=== PATIENT | female | born 1990 | race Caucasian/White ===

== ENCOUNTER 2024-06-30 17:02 | Emergency (ER) | payer MEDICAID, SELFPAY ==
[2024-06-30 17:13] VITALS: BP 124/84; PULSE 78; RESP 16; TEMP 37.2; O2SAT 98; BMI 33.9
--- NOTE | 2024-06-30 17:19 | PD.EDRME ---
Rapid Medical Screening Exam RME Arrival date/time: 06/30/24 17:02 33-year-old female presents to the emergency department complaint of generalized body aches Chief Complaint: General Adult/Misc Complain Vital signs: Vital Signs Temperature 99.0 F 06/30/24 17:13 Pulse Rate 78 06/30/24 17:13 Respiratory Rate 16 06/30/24 17:13 Blood Pressure 124/84 06/30/24 17:13 Pulse Oximetry (%) 98 06/30/24 17:13 Oxygen Delivery Method Room Air 06/30/24 17:13
[2024-06-30 18:31] LABS: Basophils % (Auto) 1 % (0-2.5); Eosinophils # (Auto) 0.4 Thou/mm3 (0.0-0.5); Eosinophils % (Auto) 5 % (0-10); Hematocrit 33.7 % (36.0-46.0); Immature Granulocytes % (Auto) 0 % (0-0); Immature Granulocytes Auto 0.01 Thou/mm3 (0.00-0.00); Lymphocytes # (Auto) 2.7 Thou/mm3 (1.0-4.8); Lymphocytes % (Auto) 36 % (10-50); Mean Corpuscular HGB Conc 35.6 g/dl (31.0-37.0); Mean Corpuscular Hemoglobin 30.4 pg (25.0-35.0); Mean Corpuscular Volume 85 fL (80-100); Monocytes # (Auto) 0.4 Thou/mm3 (0.0-0.8); Monocytes % (Auto) 5 % (0-12); Neutrophils % (Auto) 53 % (37-80); Nucleated Red Blood Cell % 0 /100 WBC (0); Platelet Count 210 Thou/mm3 (140-440); RDW Standard Deviation 38.3 fL (36.4-46.3); Red Blood Count 3.95 Miln/mm3 (4.00-5.20); White Blood Count 7.6 Thou/mm3 (3.6-11.0)
--- NOTE | 2024-06-30 18:31 | PD.EDSKIN ---
ED Skin Abcess FB-RME/HPI General Chief complaint: General Adult/Misc Complain Stated complaint: PAIN ALL OVER BODY Source: patient Arrival date/time: 06/30/24 17:02 Mode of arrival: ambulatory Limitations: no limitations RME / HPI RME / HPI narrative: 06/30/24 17:02 33-year-old female presents to the emergency department complaint of generalized body aches DR. GONZALEZ?Ke[facility] MAIN ED EVALUATION: 33-year-old female with history of shingles presenting to the emergency department via private auto who is presenting for chief complaint of waking up with generalized body aches, fever 102F, and left-sided back red discoloration x this morning. Reports pain as feeling like she got hit by a train . Denies Hx of MRSA or practicing coining, but has had shingles to the right-back side in the past. Also admits to not being sexually active for 9 years. Patient takes Levothyroxine daily, but has also tried Motrin 3 times today for management of pain with no relief. No associated symptoms include cough and runny nose. Patient denies any other associated symptoms or medical complaints. - PMH:?Shingles, Hypothyroidism, ADHD, PTSD - PSH: Denies - Social history: Denies - Current medications: Reviewed PCP MD MIGUELITO woodruff complaint: discoloration and other (BA) Onset (ago): hour(s) (24) Location: back Context: none Associated symptoms: fever Treatments prior to arrival: NSAID Related Data Previous Rx's ?Medication ?Instructions ?Recorded albuterol sulfate 90 mcg/actuation 1 puff inhalation Q6H PRN 07/05/21 aerosol inhaler (Ventolin HFA) shortness of breath or wheezing #6.7 grams azithromycin 250 mg tablet See Rx Instructions PO .COMPLEX #6 01/17/22 (Zithromax) tabs benzonatate 100 mg capsule 100 mg PO BID PRN cough #10 caps 01/17/22 clindamycin HCl 300 mg capsule 300 mg PO Q6H 7 days #28 caps 06/30/24 Allergies Allergy/AdvReac Type Severity Reaction Status Date / Time cashew nut Allergy Verified 06/30/24 17:04 pine nut Allergy Verified 06/30/24 17:04 Review of Systems Review of Systems Systems Reviewed: All systems reviewed, normal except as documented Constitutional Constitutional: Reports fever(s) and Reports other (Generalized pain) ENT Ears, Nose, Mouth, and Throat: Denies nasal discharge Respiratory Respiratory: Denies cough Integumentary/Breasts Skin/Breast: Reports erythema Past Medical History Past Medical History REPRODUCTIVE: Positive Previous Pregnancies ENDOCRINE: Positive Hypothyroidism PSYCHO/SOCIAL: Positive Anxiety, Attention Deficit Hyperactivity Disorder and Post Traumatic Stress Disorder Surgical History SURGICAL: Positive Abdominal Surgery and Section Social History SMOKING STATUS: Current every day smoker ED Exam Narrative Physical exam: General: Non-toxic, well appearing, in no acute distress, and appears state age and well developed and well nourished. Vital signs: Normal. Head: Normocephalic and atraumatic. Eyes: Aproptotic, extraocular movements intact. Nose: Nares without evidence of rhinorrhea. Neck: Supple without menigismus without lympadenopathy. Heart: Regular rate and rhythm without murmur, gallops, or rubs. Lungs: Clear to auscultation without wheezing, rales, or rhonchi. Back: No costovertebral angle tenderness. Neurological: Alert and oriented to person, place, and time. Gait normal. Skin: 3 x 2 cm area of erythema, minimal tenderness of patient no fluctuance. Minimal warmth over the left back area. No crepitus or evidence of sub cutaneous gas. No lymphangitis. No calf tenderness. Vascular: Normal pulses. No cords. No calf tenderness. General Limitations: Present no limitations Course Quality Measures none Orders Category Date Time Status CBC Stat Lab 06/30/24 18:00 Completed Comprehensive Metabolic Panel Stat Lab 06/30/24 18:00 Completed Free T4 (Free Thyroxine) Stat Lab 06/30/24 18:00 Completed Lipase Stat Lab 06/30/24 18:00 Completed PT [Prothrombin Time with INR] Stat Lab 06/30/24 18:00 Completed PTT [Partial Thromboplastin Time] Stat Lab 06/30/24 18:00 Completed TSH [Thyroid Stimulating Hormone] Stat Lab 06/30/24 18:00 Completed Clindamycin [Cleocin] Med 06/30/24 18:35 Discontinued 300 mg PO X1 ONE Ketorolac Inj [Toradol Inj] Med 06/30/24 18:35 Discontinued 30 mg IM X1 ONE Vital Signs Vital signs: Vital Signs Temperature 99.0 F 06/30/24 17:13 Pulse Rate 78 06/30/24 17:13 Respiratory Rate 16 06/30/24 17:13 Blood Pressure 124/84 06/30/24 17:13 Pulse Oximetry (%) 98 06/30/24 17:13 Oxygen Delivery Method Room Air 06/30/24 17:13 Skin / Abscess / Foreign Body MDM Narrative MDM Narrative:: Scribe Attestation: 06/30/2024 Devora Domingo, Ericka Lyon am scribing for and in the presence of Dr. Gonzalez. Provider Notation: Although this document has been carefully reviewed, there may still be some phonetic and other typographical errors.? These errors are purely grammatical due to imperfections in the software program and should not be construed in any way to compromise the substance of the patient's medical care during this visit. 33-year-old female with history of Shingles, Hypothyroidism, Anxiety, Attention Deficit Hyperactivity Disorder and Post Traumatic Stress Disorder presenting to the emergency department via private auto who is presenting for chief complaint of waking up with generalized body aches and left-sided back red discoloration x this morning. ROS: generalized body aches and left-sided back red discoloration x this morning. Patient states that she is not sexually active for 9 years. Simple cellulitis identified without evidence of deep venous thrombosis as clinical exam matches cellulitic changes. No subcutaneous emphysema or crepitus, cardiac murmurs, significant systemic involvement, or joint involvement. Doubt endocarditis, necrotizing fasciitis, or other life threatening disorders. Given the patients good social situation, cellulitis not overlying the joint, and without any complicating factors in an immunocompetant host, the patient is to be treated as an outpatient with Clinda therapy. Plan to follow up in 72 hours for reevaluation. Vital signs remained stable throughout the emergency department course. The patient was given strict return precautions and was comfortable with the plan. Patient data External records reviewed:: [facility] previous records (Reviewed prior ED records from 10/13/23. Patient was seen for Chest pain.) Clinical information provided by:: patient Social determinants that could affect healthcare access:: none Patient has the following chronic illnesses:: Hypothyroidism, Anxiety, Attention Deficit Hyperactivity Disorder and Post Traumatic Stress Disorder How is presenting disease/condition affected by chronic disease/condition?: uneffected by Evaluation data The following diagnostics were reviewed and interpreted by me:: lab results Lab and/or radiology exams considered but not ordered:: None Interpretation Summary: LABS RBC 3.95, Hct 33.7%, Immature Gran # 0.01. BUN/Creatinine Ratio 8, Glucose 122, Calculated Osmolality 271. Medications / Prescriptions Medications or Prescriptions considered but not ordered:: None Medication administrations:: Medication Administration History Discontinued Medications Clindamycin HCl (Clindamycin 150 Mg Capsule) 300 mg PO X1 ONE Stop: 06/30/24 18:36 Last Admin: 06/30/24 18:47 Dose: 300 mg Documented By: KIMBERLY Ketorolac Tromethamine (Ketorolac Inj 60 Mg/2 Ml Vial) 30 mg IM X1 ONE; Protocol Stop: 06/30/24 18:36 Last Admin: 06/30/24 18:47 Dose: 30 mg Documented By: KIMBERLY See jared if any Consultations Consultation(s) initiated? (list below): No Diagnosis Skin/Abscess Differential Diagnosis: viral exanthem, cellulitis and other (abscess, MRSA) Most likely diagnosis given after review of the tests above:: Cellulitis Admission Indicated Admission indicated?: not indicated Explain why admission is indicated or not indicated:: Does not meet admission criteria Admission Request Was there a request for admission?: No Disposition Plan Disposition Plan: Discharge Discharge Attestation Discharge Attestation: The patient and all family members were given an opportunity to ask questions and understood the discharge instructions. Discharge instructions specifically effects, indications for sooner follow up or return to the emergency department, and the expected course of current diagnosis. Patient condition: Stable Discharge Plan Plan Patient Disposition: HOME (Self Care) Patient condition on transfer: Stable Prescriptions/Referrals Prescriptions/Med Rec: New clindamycin HCl 300 mg capsule 300 mg PO Q6H 7 Days Qty: 28 0RF No Action albuterol sulfate [Ventolin HFA] 90 mcg/actuation HFA aerosol inhaler 1 puff inhalation Q6H PRN (Reason: shortness of breath or wheezing) Qty: 6.7 0RF azithromycin [Zithromax] 250 mg tablet See Rx Instructions .ROUTE .COMPLEX Qty: 6 0RF Rx Instructions: For 250 mg dose pack: take 500 mg today (day 1), then 250 mg for 4 days (days 2-5) benzonatate 100 mg capsule 100 mg PO BID PRN (Reason: cough) Qty: 10 0RF Referrals: No Primary/Family,Physician [Primary Care Provider] - In 1 week Problem List Clinical Impression: Cellulitis Patient/Caregiver Discharge Instructions Education Materials: Discharge Instructions for Cellulitis, ED Cellulitis Additional Instructions: DISCHARGE INSTRUCTIONS - ADULTS Even though you have been discharged from the Emergency Department, there are several things that you should do to ensure that you receive proper care: 1. DO READ your discharge instructions as these contain important information concerning your medical care. 2. If medication has been prescribed for your condition, fill the prescription as soon as possible and follow the directions on the medication. 3. RETURN AT ONCE TO THE EMERGENCY DEPARTMENT if you have any problems or concerns. These include but are not limited to fever, worsening pain(belly, chest, head, etc?), worsening shortness of breath, uncontrollable bleeding, inability to tolerate food and water, or any condition that makes you question your well-being. Also, if your symptoms do not improve in the next 12-24 hours, return to the ER or seek medical care immediately. 4. Be sure to follow up with your regular physician or specialist as instructed at discharge as this is the best way to ensure that you receive the very best of care. If you do not have a primary care physician, please contact a physician group and make an appointment. 5. Please visit [employer] for coupons regarding your prescriptions. It is a free service for you to use and can help reduce the cost of your medication. We would like to thank you for coming today and our hope is that we served you and your family well during your stay. Print Language: Zambian Stand Alone Forms: Deborah Award Info., Work/School Release, Patient Portal Info Letter
[2024-06-30 18:40] LABS: Partial Thromboplastin Time 28.8 Seconds (22.0-36.0); Prothrombin Time 10.8 Seconds (9.0-12.2)
[2024-06-30 18:41] LABS: Alanine Aminotransferase 10 U/L (10-49); Albumin, Serum 4.3 gm/dL (3.5-5.0); Albumin/Globulin Ratio 1.5 (1.2-2.2); Alkaline Phosphatase 59 U/L (46-116); Anion Gap 7 (7-16); Aspartate Amino Transferase 15 U/L (0-34); BUN/Creatinine Ratio 8 Ratio (12-20); Bilirubin,Total 0.3 mg/dL (0.3-1.2); Blood Urea Nitrogen 10 mg/dL (9-23); Calcium 8.7 mg/dL (8.3-10.6); Calcium (Corrected) 8.7 mg/dL (8.5-10.1); Carbon Dioxide 24.7 mMol/L (20.0-31.0); Chloride 104 mMol/L (98-107); Creatinine (Component) 1.2 mg/dL (0.6-1.3); Estimated Creatinine Clearance 77.6 mL/min (>60); Globulin 2.8 gm/dL (2.3-3.5); Glucose 122 mg/dL (74-106); Lipase 26 U/L (12-53); Osmolality,Calculated 271 (275-295); Potassium 3.5 mMol/L (3.4-5.1); Sodium 136 mMol/L (136-145); Total Protein 7.1 gm/dL (5.7-8.2); eGFR > 60 See Note
[2024-06-30 18:43] LABS: Free T4 (Free Thyroxine) 1.12 ng/dL (0.89-1.76); Thyroid Stimulating Hormone 4.03 uIU/mL (0.55-4.78)
[2024-06-30] MEDS: KETOROLAC INJ 60 MG/2 ML VIAL 30 MG IM (18:47)
[2024-06-30] MEDS: CLINDAMYCIN 150 MG CAPSULE 300 MG PO (18:47)
== END 2024-06-30 19:00 | disposition home or self-care (01) ==
PROVIDERS: Nurse Practitioner Primary Care; Emergency Provider Emergency Medicine
DX: L03.312 Cellulitis of back [any part except buttock and flank] (principal)
CPT/HCPCS: 36415; 80053; 80307; 80320; 81001; 81025; 83690; 84439; 84443; 85025; 85610; 85730; 96372; 99283; J1885; A9270; G0480

== ENCOUNTER 2024-09-28 18:40 | Emergency (ER) | payer MEDICAID, SELFPAY ==
[2024-09-28 18:41] VITALS: BMI 31.6
--- NOTE | 2024-09-28 20:01 | PC.NURSE ---
no answer when called for ekg and vital signs @2001
--- NOTE | 2024-09-28 20:27 | PC.NURSE ---
no answer x2 @2026
== END 2024-09-28 20:40 | disposition left against medical advice (07) ==
LOC: SERX 21:17
PROVIDERS: Emergency Provider Emergency Medicine
DX: Z53.21 Procedure and treatment not carried out due to patient leaving prior to being seen by health care provider (principal)
CPT/HCPCS: 99282

== ENCOUNTER 2024-12-27 11:00 | Emergency (ER) | payer MEDICAID, SELFPAY ==
[2024-12-27 11:00] VITALS: BMI 33.3
[2024-12-27 11:20] VITALS: BP 145/91; PULSE 92; RESP 18; TEMP 36.9; O2SAT 98
--- NOTE | 2024-12-27 11:30 | EKG_ITS ---
[facility] Test Date: 2024-12-27 Pat Name: KISHORE TRINH Department: Room: - Gender: Female Director Patient Accounting: : 1990 Requested By: Troy Young (ARNALDO) Order Number: [id number] Reading MD: Troy Young (ARNALDO) Measurements Intervals Olive Rate: 91 P: 41 [place]: 146 QRS: 80 QRSD: 98 T: 55 QT: 377 QTc: 465 Interpretive Statements SINUS RHYTHM POSSIBLE LEFT ATRIAL ENLARGEMENT [-0.1mV P-WAVE IN V1/V2] Compared to ECG 10/13/2023 15:10:03 No significant changes /store/S0/[id number]/ecg/[id number].pdf
--- NOTE | 2024-12-27 11:30 | EDRME_ITS ---
Rapid Medical Screening Exam [facility] Arrival date/time: 12/27/24 11:00 34-year-old female presents to the Emergency Department for complaint of chest pain ongoing x 3 days Chief Complaint: Chest Pain Vital signs: Vital Signs Temperature 98.4 F 12/27/24 11:20 Pulse Rate 92 12/27/24 11:20 Respiratory Rate 18 12/27/24 11:20 Blood Pressure 145/91 H 12/27/24 11:20 Pulse Oximetry (%) 98 12/27/24 11:20 Oxygen Delivery Method Room Air 12/27/24 11:20 Vital signs reviewed by provider: Yes Exam: On exam patient well-appearing does not appear ill or toxic no acute distress Clinical Impression: Lab work and imaging ordered as well as EKG
--- NOTE | 2024-12-27 11:30 | XR_ITS ---
EXAMINATION: PA lateral chest 2 views TECHNIQUE: Upright PA lateral chest 2 views Date and time: December 27, 2024, 1221 hours INDICATIONS: Chest pain beginning 3 days ago. FINDINGS: Subsegmental atelectasis left base Normal heart size No lobar pneumonia or pulmonary edema Lumbar dextroscoliosis 18 degrees IMPRESSION: Subsegmental atelectasis left base
[2024-12-27 12:14] LABS: Basophils # (Auto) 0.1 Thou/mm3 (0.0-0.2); Basophils % (Auto) 1 % (0-2.5); Eosinophils # (Auto) 0.2 Thou/mm3 (0.0-0.5); Eosinophils % (Auto) 2 % (0-10); Hematocrit 34.5 % (36.0-46.0); Hemoglobin 11.7 g/dL (12.0-16.0); Immature Granulocytes Auto 0.02 Thou/mm3 (0.00-0.00); Lymphocytes # (Auto) 1.6 Thou/mm3 (1.0-4.8); Lymphocytes % (Auto) 20 % (10-50); Mean Corpuscular HGB Conc 33.9 g/dl (31.0-37.0); Mean Corpuscular Hemoglobin 29.9 pg (25.0-35.0); Mean Corpuscular Volume 88 fL (80-100); Monocytes # (Auto) 0.3 Thou/mm3 (0.0-0.8); Monocytes % (Auto) 4 % (0-12); Neutrophils # (Auto) 5.9 Thou/mm3 (1.8-7.7); Neutrophils % (Auto) 73 % (37-80); Nucleated Red Blood Cell # 0.00 Thou/mm3 (0.00-0.00); Nucleated Red Blood Cell % 0 /100 WBC (0); Platelet Count 248 Thou/mm3 (140-440); RDW Standard Deviation 40.7 fL (36.4-46.3); Red Blood Count 3.91 Miln/mm3 (4.00-5.20); White Blood Count 8.1 Thou/mm3 (3.6-11.0)
[2024-12-27 12:44] LABS: Alanine Aminotransferase 9 U/L (10-49); Albumin, Serum 4.6 gm/dL (3.5-5.0); Albumin/Globulin Ratio 1.9 (1.2-2.2); Alkaline Phosphatase 53 U/L (46-116); Anion Gap 8 (7-16); Aspartate Amino Transferase 15 U/L (0-34); BUN/Creatinine Ratio 8 Ratio (12-20); Bilirubin,Total 0.3 mg/dL (0.3-1.2); Blood Urea Nitrogen 9 mg/dL (9-23); Calcium 8.9 mg/dL (8.3-10.6); Calcium (Corrected) 8.9 mg/dL (8.5-10.1); Carbon Dioxide 24.1 mMol/L (20.0-31.0); Chloride 108 mMol/L (98-107); Creatinine (Component) 1.1 mg/dL (0.6-1.3); Estimated Creatinine Clearance 80.2 mL/min (>60); Globulin 2.4 gm/dL (2.3-3.5); Glucose 92 mg/dL (74-106); Osmolality,Calculated 278 (275-295); Potassium 4.3 mMol/L (3.4-5.1); Sodium 140 mMol/L (136-145); Total Protein 7.0 gm/dL (5.7-8.2); Troponin I < 0.002 ng/mL (0.0-0.045); eGFR > 60 See Note
[2024-12-27 14:15] VITALS: BP 143/84; PULSE 88; RESP 18; TEMP 36.9; O2SAT 96
--- NOTE | 2024-12-27 14:49 | EDNOTE_ITS ---
<Statement entered by Renetta Rolle MD - 12/27/24 17:35> I, Renetta Rolle MD, have reviewed the history, exam, and assessment of the patient. I have evaluated the patient independently and agree with the plan of care documented by Dr. Chase. All diagnostic studies were reviewed and discussed. I confirm the diagnosis as documented by the Resident. I was present during the Medical Decision Making for this patient. The patient's plan of care was created between myself and the Resident and consistent with our discussion of the patient's case. ED Chest Pain RME/HPI General Chief Complaint: Chest Pain Stated Complaint: MID CHEST PAIN WITH VOMITING, NAUSEA X4D Arrival date/time: 12/27/24 11:00 RME / HPI RME / HPI narrative: 12/27/24 11:00 Patient is a imaging 34-year-old female with a past medical history of substance use disorder secondary to benzo use and 12.5 pack year history. Patient stated his chest pain originates at the sternal/epigastric region does not radiate and is described as a 7 out of 10 that comes and goes usually lasting about 1 hour. Pain has been present for the past 4 days. Pain is sharp and worsening with inhalation. And reproducible with palpation. Denied any recent sick contacts or cough. Denied trauma to the chest. Denied any history of hyperlipidemia. Denied previous history of cardiac disease including MIs or heart failure. Pain not were made worse with exertion. Usually occurs at rest. Past medical history of GERD GERD usually described as burning sensation that may be sharp. No shortness of breath. Exam: On exam patient well-appearing does not appear ill or toxic no acute distress Impression: Lab work and imaging ordered as well as EKG Related Data Previous Rx's ?Medication ?Instructions ?Recorded albuterol sulfate 90 mcg/actuation 1 puff inhalation Q 6H PRN 07/05/21 aerosol inhaler (Ventolin HFA) shortness of breath or wheezing #6.7 grams famotidine 40 mg tablet 40 mg PO BID GERD 15 days #3 0 tabs 12/27/24 ibuprofen 200 mg capsule 200 mg PO Q6H PRN pain 10 da ys #30 12/27/24 caps Allergies Allergy/AdvReac Type Severity Reaction Status Date / Time cashew nut Allergy Severe Swelling Verified 12/27/24 11:03 of Lip/Tongue/Throat pine nut Allergy Severe Swelling Verified 12/27/24 11:03 of Lip/Tongue/Throat Review of Systems Review of Systems Narrative Review of Systems: General appearance: NO weight change, NO fatigue, NO weakness, NO fever, NO chills, NO night sweats, No cough Skin: NO rash, NO itching, NO sores, NO moles HEENT: NO Trauma, NO nausea, NO vomiting, NO visual changes, NO blurry vision, NO double vision, NO tinnitus, NO vertigo, NO ear discharge, NO rhinorrhea, NO stuffiness, NO sneezing, NO allergy, NO epistaxis. NO Hoarseness, NO sore throat, NO swollen neck. Cardiac: Yes, chest pain. NO Palpitations, NO dyspnea on exertion, NO orthopnea, NO paroxysmal nocturnal dyspnea, NO edema Respiratory: NO Shortness of Breath, NO Wheezing, NO Cough, NO Sputum, NO hemoptysis GI:NO appetite, NO nausea, NO vomiting, NO dysphagia, NO changes in bowel frequency, NO stool color, NO diarrhea, NO constipation, NO hemetemesis, NO hemorrhoids, NO melena, NO hematechezia, NO abdominal pain, NO jaundice Renal: NO frequency, NO hesitancy, NO urgency, NO hematuria, NO nocturia, NO incontinence MSK: NO muscle weakness, NO gout, NO arthritis, NO muscle stiffness Neuro: NO headaches, NO tremors, NO weakness, NO paralysis, NO seizures, NO loss of consciousness, NO numbness. Hem: NO anemia, NO easy bruising/bleeding, NO petechiae, NO purpura Endo: NO heat/cold intolerance, NO excessive sweating, NO polyuria, NO polydipsia, NO polyphagia, NO thyroid problems, NO diabetes Pysch: NO mood, NO anxiety, NO depression ED Exam Narrative Physical exam: General Appearance: Alert & Oriented X3, well-nourished female who is lying in b ed in no acute distress HEENT: Skull symmetrical and atraumatic. Conjunctivae pink and moist. Pupils equal, round, reactive to light and accommodation (PERRL). External ear without lesion or discharge. Straight, nares patient, mucosa pink, no discharge. Cardio: Normal Rate and Rhythm with S1 and S2 heart sounds. No murmurs or extra heart sounds auscultated. No bruits on carotid auscultation. No peripheral edema or cyanosis. Lungs: Symmetric with good expansion. Chest and back non-tender. Breath sounds vesicular without crackles, wheezing or rhonchi Abdomen: Non-tender, Non-distended, Normal Reactive Bowel Sounds Neuro: Alert, cooperative, oriented to person, place, and time. Speech clear. CN grossly intact. Upper motor strength 5/5 and Lower motor strength 5/5. Sensation intact. Course Quality Measures none Orders Category Date Time Status EKG (ED ONLY) *Do not use* NOW Care 12/27/24 11:30 Completed EKG (ED Only) Stat Exams 12/27/24 11:30 Draft XR chest 2V Stat Exams 12/27/24 11:30 Completed CBC Stat Lab 12/27/24 11:48 Completed Comprehensive Metabolic Panel Stat Lab 12/27/24 11:48 Completed HCG Qualitative,Urine Stat Lab 12/27/24 11:30 Ordered Troponin I Stat Lab 12/27/24 11:48 Completed Vital Signs Vital signs: Vital Signs Temperature 98.4 F 12/27/24 11:20 Pulse Rate 92 12/27/24 11:20 Respiratory Rate 18 12/27/24 11:20 Blood Pressure 145/91 H 12/27/24 11:20 Pulse Oximetry (%) 98 12/27/24 11:20 Oxygen Delivery Method Room Air 12/27/24 11:20 Chest Pain Patient data External records reviewed:: 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 No leukocytosis noted, WBC count 8.7. Normocytic anemia 11.7 and hematocrit 34.5. CMP, sodium within normal limits potassium within normal limits bicarb 24 (within normal limits) no ROSALBA noted. Troponin negative, less than 0.002. Chest x-ray subsegmental atelectasis noted in the left base. EKG no ST elevation noted. #Chest pain #GERD #Atelectasis - The patient's plan was discussed with attending Dr. Aquilino Chase MD PGY2 Internal Medicine Medications / Prescriptions Medications or Prescriptions considered but not ordered:: None Medication administrations:: None Consultations Consultation(s) initiated? (list below): No Diagnosis Chest Pain Differential Diagnosis: pneumothorax, costochondritis and chest pain Most likely diagnosis given after review of the tests above:: Patient is a 34-year-old female with a past medical history of substance use disorder including meth and benzos and smoking history who presented to the emergency room with a chief complaint of chest pain ongoing for the past 4 days. No leukocytosis noted, WBC count 8.7. Normocytic anemia 11.7 and hematocrit 34.5. CMP, sodium within normal limits potassium within normal limits bicarb 24 (within normal limits) no ROSALBA noted. Troponin negative, less than 0.002. Chest x-ray subsegmental atelectasis noted in the left base. EKG no ST elevation noted. #Chest pain #GERD #Atelectasis - The patient's plan was discussed with attending Dr. Rolle. Penny Chase MD PGY2 Internal Medicine Admission Indicated Admission indicated?: not indicated Admission Request Was there a request for admission?: No Disposition Plan Disposition Plan: Discharge Discharge Attestation Discharge Attestation: The patient and all family members were given an opportunity to ask questions and understood the discharge instructions. Discharge instructions specifically effects, indications for sooner follow up or return to the emergency department, and the expected course of current diagnosis. Patient condition: Stable Discharge Plan Plan Patient Disposition: HOME (Self Care) Patient condition on transfer: Stable Health Concerns: Instructions: -You have been seen in the ER for chest pain likely from acid reflux. -Please take famotidine for acid reflex -Please follow up with your primary care provider within one week of discharge -If your symptoms worsen,please seek immediate medical attention and return to your nearest emergency room -If you do not have a primary care provider, [facility] [address], [place] [address], Prescriptions/Referrals Prescriptions/Med Rec: New famotidine 40 mg tablet 40 mg PO BID 15 Days Qty: 30 0RF ibuprofen 200 mg capsule 200 mg PO Q6H PRN (Reason: pain) 10 Days Qty: 30 0RF Continued albuterol sulfate [Ventolin HFA] 90 mcg/actuation HFA aerosol inhaler 1 puff inhalation Q6H PRN (Reason: shortness of breath or wheezing) Qty: 6.7 0RF Discontinued azithromycin [Zithromax] 250 mg tablet See Rx Instructions .ROUTE .COMPLEX Qty: 6 0RF Rx Instructions: For 250 mg dose pack: take 500 mg today (day 1), then 250 mg for 4 days (days 2-5) benzonatate 100 mg capsule 100 mg PO BID PRN (Reason: cough) Qty: 10 0RF Referrals: Ronnie Wilkinson MD [Primary Care Provider, Family Practice] - In 1 week Problem List Clinical Impression: Chest pain, Chest pain due to GERD, Atelectasis Patient/Caregiver Discharge Instructions Education Materials: ED GERD (Adult) Print Language: Yemeni Stand Alone Forms: Deborah Award Info., Patient Portal Info Letter
[2024-12-27 16:20] VITALS: BP 124/78; PULSE 78
== END 2024-12-27 16:21 | disposition home or self-care (01) ==
PROVIDERS: Nurse Practitioner Primary Care; Emergency Provider Family Medicine; PCP Family Medicine
DX: R07.9 Chest pain, unspecified (principal); D64.9 Anemia, unspecified; J98.11 Atelectasis; K21.9 Gastro-esophageal reflux disease without esophagitis
CPT/HCPCS: 36415; 71046; 80053; 81025; 84484; 85025; 93005; 99283